=== PATIENT | male | born 1945 | race Caucasian/White ===

== ENCOUNTER → 2016-06-16 | Outpatient (CLI) | payer MEDICARE ==
[2016-06-16 10:33] LABS: MEAN CORPUSCULAR HGB CONC 34.4 g/dL (31.0-37.0); MEAN CORPUSCULAR VOLUME 94 FL (80-100); MEAN PLATELET VOLUME 10.6 FL (6.0-9.5); PLATELET COUNT 275 10^3uL (150-450); WHITE BLOOD COUNT 7.86 10^3uL (4.0-11.0)
[2016-06-16 10:41] LABS: MEAN CORPUSCULAR HEMOGLOBIN 32.4 PG (26.0-34.0)
[2016-06-16 10:48] LABS: BAND NEUTROPHILS % 0 % (0-6); EOSINOPHILS % 1 % (0-4); LYMPHOCYTES # 2.1 #; MONOCYTES # 0.6 #; MONOCYTES % 8 % (3-11); SEGMENTED NEUTROPHILS % 64 % (51-67); TOTAL CELLS COUNTED 100
[2016-06-16 10:49] LABS: RBC MORPH NORMAL (NORMAL)
[2016-06-16 10:53] LABS: ALBUMIN 3.9 g/dL (3.4-5.0); ANION GAP 18.7 MEQ/L (3-15); CALCULATED IONIZED CALCIUM 4.2 mg/dL (3.8-4.6); MAGNESIUM* 2.2 mg/dL (1.6-2.3); PHOSPHORUS 3.6 mg/dL (2.4-4.9)
== END ==
LOC: LAB 10:04
PROVIDERS: ATTEND Internal Medicine Hematology & Oncology
DX: C64.2 Malignant neoplasm of left kidney, except renal pelvis (principal); R53.83 Other fatigue
CPT/HCPCS: 36415; 80053; 83615; 83735; 84100; 84443; 85007; 85027

== ENCOUNTER → 2016-06-17 | Outpatient (CLI) | payer MEDICARE | LOC: RAD 08:37 | PROVIDERS: ATTEND Internal Medicine Hematology & Oncology | DX: C64.2 Malignant neoplasm of left kidney, except renal pelvis (principal) | CPT/HCPCS: 71260; 74178; Q9967 ==

== ENCOUNTER → 2016-07-27 | Outpatient (CLI) | payer MEDICARE ==
[2016-07-27 08:09] LABS: MEAN CORPUSCULAR HGB CONC 34.5 g/dL (31.0-37.0); MEAN CORPUSCULAR VOLUME 94 FL (80-100); MEAN PLATELET VOLUME 10.3 FL (6.0-9.5); PLATELET COUNT 232 10^3uL (150-450)
[2016-07-27 08:10] LABS: MEAN CORPUSCULAR HEMOGLOBIN 32.4 PG (26.0-34.0)
[2016-07-27 08:15] LABS: BAND NEUTROPHILS % 0 % (0-6); EOSINOPHILS % 2 % (0-4); LYMPHOCYTES # 1.9 #; MONOCYTES # 0.3 #; MONOCYTES % 5 % (3-11); RBC MORPH NORMAL (NORMAL)
[2016-07-27 08:40] LABS: ALBUMIN 3.7 g/dL (3.4-5.0); ANION GAP 16.8 MEQ/L (3-15); CALCULATED IONIZED CALCIUM 4.1 mg/dL (3.8-4.6); MAGNESIUM* 1.8 mg/dL (1.6-2.3); PHOSPHORUS 3.8 mg/dL (2.4-4.9); TOTAL PROTEIN 6.8 g/dL (6.4-8.5)
[2016-07-28 14:34] LABS: SEGMENTED NEUTROPHILS % 65 % (51-67); TOTAL CELLS COUNTED 100
== END ==
LOC: LAB 07:57
PROVIDERS: ATTEND Internal Medicine Hematology & Oncology
DX: C64.2 Malignant neoplasm of left kidney, except renal pelvis (principal); R53.83 Other fatigue
CPT/HCPCS: 36415; 80053; 83615; 83735; 84100; 84443; 85007; 85027

== ENCOUNTER → 2016-08-21 | Outpatient (CLI) | payer MEDICARE ==
[~2016-08-21] MED LIST: LISI1TAB8 PO
[2016-08-21 14:25] LABS: MEAN CORPUSCULAR HGB CONC 34.2 g/dL (31.0-37.0); MEAN CORPUSCULAR VOLUME 95 FL (80-100); MEAN PLATELET VOLUME 11.5 FL (6.0-9.5); PLATELET COUNT 231 10^3uL (150-450); WHITE BLOOD COUNT 7.33 10^3uL (4.0-11.0)
[2016-08-21 14:42] LABS: ALBUMIN 4.1 g/dL (3.4-5.0); ANION GAP 22.3 MEQ/L (3-15); MAGNESIUM* 1.9 mg/dL (1.6-2.3); PHOSPHORUS 3.3 mg/dL (2.4-4.9); TOTAL PROTEIN 7.1 g/dL (6.4-8.5)
[2016-08-21 14:43] LABS: MEAN CORPUSCULAR HEMOGLOBIN 32.6 PG (26.0-34.0)
[2016-08-21 14:46] LABS: BAND NEUTROPHILS % 1 % (0-6); EOSINOPHILS % 0 % (0-4); MONOCYTES # 0.7 #; MONOCYTES % 10 % (3-11); SEGMENTED NEUTROPHILS % 62 % (51-67); TOTAL CELLS COUNTED 100
[2016-08-21 14:47] LABS: RBC MORPH NORMAL (NORMAL)
== END ==
LOC: LAB 13:12
PROVIDERS: ATTEND Internal Medicine Hematology & Oncology
DX: C64.2 Malignant neoplasm of left kidney, except renal pelvis (principal); R53.83 Other fatigue
CPT/HCPCS: 36415; 80053; 83615; 83735; 84100; 84443; 85007; 85027